=== PATIENT | female | born 1940 | race Caucasian/White ===

== ENCOUNTER 2018-03-24 09:54 | Outpatient (CLI) | payer OTHER | END 2018-03-24 10:09 | disposition home or self-care (01) | LOC: LAB 09:54 | DX: E11.65 Type 2 diabetes mellitus with hyperglycemia (principal); N39.0 Urinary tract infection, site not specified; D68.8 Other specified coagulation defects; D64.89 Other specified anemias; E78.2 Mixed hyperlipidemia; E11.21 Type 2 diabetes mellitus with diabetic nephropathy; E03.8 Other specified hypothyroidism; Z12.11 Encounter for screening for malignant neoplasm of colon ==

== ENCOUNTER 2018-04-30 10:39 | Outpatient (CLI) | payer OTHER | END 2018-04-30 10:41 | disposition home or self-care (01) | LOC: SONOGRAMA 10:39 → MAMO-SONO 10:45 | DX: E03.8 Other specified hypothyroidism (principal); E04.2 Nontoxic multinodular goiter; J45.998 Other asthma ==

== ENCOUNTER 2018-05-19 10:46 | Outpatient (CLI) | payer OTHER | END 2018-05-19 10:53 | disposition home or self-care (01) | LOC: LAB 10:46 | DX: D64.89 Other specified anemias (principal); E03.8 Other specified hypothyroidism ==

== ENCOUNTER → 2018-12-17 11:43 | Outpatient (CLI) | payer OTHER | END | disposition home or self-care (01) | LOC: LAB 11:43 | DX: E03.8 Other specified hypothyroidism (principal); E11.65 Type 2 diabetes mellitus with hyperglycemia; D68.8 Other specified coagulation defects ==

== ENCOUNTER → 2019-01-18 10:13 | Outpatient (CLI) | payer OTHER | END | disposition home or self-care (01) | LOC: LAB 10:13 | DX: D64.89 Other specified anemias (principal); D51.0 Vitamin B12 deficiency anemia due to intrinsic factor deficiency; E11.9 Type 2 diabetes mellitus without complications; Z12.11 Encounter for screening for malignant neoplasm of colon; E55.9 Vitamin D deficiency, unspecified ==

== ENCOUNTER 2019-05-10 11:09 | Outpatient (CLI) | payer OTHER | END 2019-05-10 11:17 | disposition home or self-care (01) | LOC: LAB 11:09 | DX: E03.8 Other specified hypothyroidism (principal); D64.89 Other specified anemias; E11.65 Type 2 diabetes mellitus with hyperglycemia; E78.2 Mixed hyperlipidemia; D68.8 Other specified coagulation defects ==

== ENCOUNTER → 2019-05-26 09:20 | Outpatient (CLI) | payer OTHER | END | disposition home or self-care (01) | LOC: LAB 09:20 | DX: E11.65 Type 2 diabetes mellitus with hyperglycemia (principal); E78.2 Mixed hyperlipidemia; D51.0 Vitamin B12 deficiency anemia due to intrinsic factor deficiency ==